=== PATIENT | male | born 1960 | race Hispanic/Latino ===

== ENCOUNTER → 2018-05-03 | Outpatient (CLI) | payer OTHER ==
--- NOTE | 2018-05-03 11:21 | Diagnostic Imaging Report ---
EXAM: DXA BONE DENSITY INDICATIONS: Osteoporosis screening COMPARISON: None. FINDINGS: Left femoral neck bone mineral density (BMD) (g/cm2):0.990 Femur T-score (standard deviation relative to young adult mean BMD):-1 Femur Z-score (standard deviation relative to age-matched control group):-0.1 Lumbar bone mineral density (BMD) (g/cm2):1.235 Lumbar T-score (standard deviation relative to young adult mean BMD): 1.3 Lumbar Z-score (standard deviation relative to age-matched control group):1.9 CONCLUSION: WHO bone mineral classification: Normal World Health Organization Classification: *The Z-score is provided for informational purposes. The T-score is preferable for clinical decisions. RECOMMENDATIONS: Normal \T\ Osteopenia:Calcium supplementation, daily multiple vitamins, and adequate exercise as preventive measures against osteoporosis. Osteoporosis \T\ Severe Osteoporosis:In addition to the above, pharmacologic therapy. Dictated by: Noe Victor M.D. on 05/03/2018 at 11:24 Electronically approved by: Noe Victor M.D. on 05/03/2018 at 11:24
== END ==
LOC: DX 10:05
PROVIDERS: ATTEND Family Medicine
DX: Z13.820 Encounter for screening for osteoporosis (principal)
CPT/HCPCS: 77080